=== PATIENT | female | born 1990 | race Hispanic/Latino ===

== ENCOUNTER 2018-04-08 04:50 | Emergency (ER) | payer MEDICAID, OTHER ==
[2018-04-08 05:04] VITALS: O2SAT 99
[2018-04-08] MEDS ORDERED: HYDROmorphone 0.5 mg/0.5 ml ISec ONE ×2 (05:20→06:04)
[2018-04-08] MEDS ORDERED: HYDROmorphone 0.5 mg/0.5 ml ISec IM STA (05:22)
--- NOTE | 2018-04-08 05:25 | ED PDOC ---
HPI: Abdomen Time Seen by Provider: 04/08/18 05:11 Chief Complaint (Nursing): Abdominal Pain Chief Complaint (Provider): Cancer Pain History/Exam Limitations: no limitations Onset/Duration Of Symptoms: Persistent, Worse Since Outside of [place] travel?: No Current Symptoms Are (Timing): Still Present Location Of Pain/Discomfort: Diffuse, Suprapubic, Other (vaginal and rectal) Additional Complaint(s): Pt presents to the ED with a complaint of chronic pain secondary to her colon cancer, which has metasticized to her lungs, vagina and uterus. Pt is on multiple forms of pain medication including fentanyl patch and oxycodone. She has run out of the fentanyl patches and the oxycodone can not be refilled until the morning. The timing of these rx and the refill dates has been verified through [facility]. Pt was recently (this am) discharged from [facility] for similar complaints. Pt seeks relief from pain. 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) Denies: Diabetes, Hepatitis, HIV, HTN, Chronic Kidney Disease, Sexually Transmitted Disease - Family History Family History: States: Unknown Family Hx - Immunization History Hx Tetanus Toxoid Vaccination: No Hx Influenza Vaccination: No Hx Pneumococcal Vaccination: No - Home Medications Home Medications: Ambulatory Orders Medication Instructions Recorded Ibuprofen [Motrin Tab] 600 mg PO Q6 #30 tab 09/24/17 Fentanyl 1 each TD MWF 04/04/18 Oxycodone HCl [Oxycodone HCl ER] 60 mg PO BID 04/04/18 oxyCODONE [oxycodone Hydrochloride] 10 mg PO Q4H 04/04/18 Clonazepam [Klonopin] 1 mg PO BID #60 tab 04/07/18 Lidocaine 2% Viscous 300 ml MM BID #1 bottle 04/07/18 - Allergies Allergies/Adverse Reactions: Allergies Allergy/AdvReac Type Severity Reaction Status Date / Time gabapentin Allergy RASH Verified 04/08/18 05:00 Review of Systems ROS Statement: Except As Marked, All Systems Reviewed And Found Negative Constitutional: Positive for: Weight loss. Negative for: Fever, Chills Cardiovascular: Negative for: Chest Pain Gastrointestinal: Positive for: Other (Pain - chronic pain related to cancer in colon, mets to lungs, uterus and vagina) Psych: Positive for: Anxiety, Depression Physical Exam - Reviewed Nursing Documentation Reviewed: Yes Vital Signs Reviewed: Yes - Physical Exam Appears: Positive for: Uncomfortable Head Exam: Positive for: ATRAUMATIC, NORMAL INSPECTION, NORMOCEPHALIC Cardiovascular/Chest: Positive for: Regular Rate, Rhythm. Negative for: Chest Non Tender, Edema, Gallop, Bradycardia, Tachycardia Respiratory: Positive for: Normal Breath Sounds. Negative for: Accessory Muscle Use, Crackles, Rales, Rhonchi Pulses-Carotid (L): 2+ Pulses-Carotid (R): 2+ Pulses-Radial (L): 2+ Pulses-Radial (R): 2+ Rectal: Positive for: Deferred - ECG O2 Sat by Pulse Oximetry: 99 Medical Decision Making Medical Decision Making: Pt arrives complaining of chronic pain from cancerous symptoms. Pt admits being treated in [facility] earlier this evening with 10mg morphine and having rx for oxycodon that the pharmacy refuses to fill until am. Timing of oxy rx is verified by [facility]; pt removed fentanyl patch four days ago. Pt seeks relief from pain in rectum and bladder. Pt medicated with 1mg dilaudid IV Pt medicated with 1mg dilaudid IV Pt feeling better and is discharged Disposition - Clinical Impression Clinical Impression: Chronic rectal pain, Colon cancer - Patient ED Disposition Is Patient to be Admitted: No Comment: Pt should follow up as soon as practicable with her pain management physician for dosing consideration related to her persistent pain Doctor Will See Patient In The: Office Counseled Patient/Family Regarding: Need For Followup - Disposition Disposition: Routine/Home Disposition Time: 06:04 Condition: STABLE Instructions: Chronic Pain (DC), Colon and Rectal Cancer (DC) Forms: [employer] ([place]ian)
[2018-04-08] MEDS ORDERED: HYDROmorphone 0.5 mg/0.5 ml ISec IVP STA ×2 (05:33→06:09)
[2018-04-08 06:48] VITALS: BP 115/72; PULSE 86; RESP 18; TEMP 98.2
== END 2018-04-08 06:30 | disposition home or self-care (01) ==
LOC: H.ER 04:50
DX: K62.89 Other specified diseases of anus and rectum (principal); C18.9 Malignant neoplasm of colon, unspecified; F32.9 Major depressive disorder, single episode, unspecified; F41.9 Anxiety disorder, unspecified
CPT/HCPCS: 96374; 99283; J1170